=== PATIENT | female | born 1975 | race Caucasian/White ===

== ENCOUNTER 2017-09-13 10:30 | Outpatient (CLI) | payer OTHER | END 2017-09-13 10:31 | disposition home or self-care (01) | LOC: BICMAMMO 10:30 | PROVIDERS: ATTEND Advanced Practice Midwife | DX: Z12.31 Encounter for screening mammogram for malignant neoplasm of breast (principal) | CPT/HCPCS: 77063; 77067 ==

== ENCOUNTER 2019-01-30 14:44 | Outpatient (CLI) | payer OTHER ==
--- NOTE | 2019-01-30 15:09 | ULT ---
THYROID ULTRASOUND: HISTORY: Thyroid nodule. COMPARISON: None. TECHNIQUE: Sagittal and transverse imaging of the thyroid gland is performed. FINDINGS: The left thyroid lobe measures 1.2 x 3.8 x 1.1 cm. The right thyroid lobe measures 2.0 x 4.0 x 1.9 c m. The thyroid isthmus is 0.1 cm. In the upper aspect of the left thyroid lobe there is a hypoechoic focus with a punctate echogenic co mponent likely representing a small calcification. The lesion measures 0.6 x 0.4 x 0.6 cm. In the right thyroid lobe, there is a predominantly solid nodule measuring 2.4 x 1.6 x 1.9 cm. IMPRESSION: 1. Hypoechoic focus with punctate calcification in the left thyroid lobe with a TIRADS calculator sc ore of TR4. 2. Solid nodule in the left thyroid lobe with a TR score of TR3. Given maximum dimension of 2.4 cm, fine needle aspiration is recommended. CODE T POS: OFF
== END 2019-01-30 14:45 | disposition home or self-care (01) ==
LOC: ULT 14:44
PROVIDERS: ATTEND Otolaryngology Plastic Surgery within the Head & Neck
DX: E04.1 Nontoxic single thyroid nodule (principal); E07.89 Other specified disorders of thyroid; R94.6 Abnormal results of thyroid function studies
CPT/HCPCS: 76536

== ENCOUNTER 2021-05-12 11:51 | Outpatient (CLI) | payer OTHER | END 2021-05-12 11:52 | disposition home or self-care (01) | LOC: BICRAD 11:51 | PROVIDERS: ATTEND Internal Medicine | DX: R06.00 Dyspnea, unspecified (principal) | CPT/HCPCS: 71046 ==